=== PATIENT | female | born 1930 | race Hispanic/Latino ===

== ENCOUNTER → 2018-11-13 | Emergency (ER) | payer MEDICARE ==
[~2018-11-13] VITALS: Ht 149.9 cm; Wt 56.7 kg
[~2018-11-13] MED LIST: COLACE100 MG PO; DICYCLOMINE HCL 20 MG/2 ML VIAL IM ONE; FAMOTIDINE 20 MG/2 ML VIAL IV ONE; SODIUM CHLORIDE 0.9% 1000ML 1,000 ML ONE; ULTRACET TABLE1 EACH PO; ULTRAM50 MG PO
--- OUTSIDE RECORDS SUMMARY | 2018-11-14 | XMS REPORT ---
Author Author Sachin Ramos Organization [employer] Address Unknown Phone Unavailable Care Team Providers Care Scenic Artist Name Role Phone Sachin Ramos Unavailable Allergies, Adverse Reactions, Alerts Substance Reaction Event Type N.K.D.A. 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 Problem Mixed hyperlipidemia 272.2 Active Problem 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.9 Active Problem Mixed hyperlipidemia E78.2 Active Problem Pain in left leg M79.605 Active Problem Family history of ischemic heart disease and other diseases of the circulatory system Z82.49 Active Problem Screening for cardiovascular conditions V81.2 Active Problem Pulmonary hypertension, 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 Problem Arthropathy, 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 Active Assessment Pulmonary hypertension, 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 Assessment Mixed hyperlipidemia E78.2 Active Assessment Family history of ischemic heart disease and other diseases of the circulatory system Z82.49 Active Assessment 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.9 Active Assessment Arthropathy, 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 Active Assessment Pain in left leg M79.605 Active Medications Medication Code System Code Instructions Start Date End Date Status Dosage Famotidine [facility] [address]-06 20 MG Orally Twice a day Active 1 tablet Pantoprazole Sodium [facility] [address]-55 40 MG Orally Once a day Active 1 tablet Loratadine [facility] [address]-36 10 MG Orally Once a day Active 1 tablet Alprazolam [facility] [address]-00 0.5 MG Orally once every night Active 1 tablet Atorvastatin Calcium [facility] [address]-55 10 mg Orally Once a day Active 1 tablet Losartan Potassium [facility] [address]-33 50 MG Orally Once a day Active 1 tablet Anucort-HC [facility] [address]-62 25 MG Rectal Twice a day Nov 24, 2015 Active 1 suppository Tramadol-Acetaminophen [facility] [address]-52 37.5-325 MG Orally every 12 hours Active 1 tablet Gabapentin [facility] [address]-20 100 MG Orally Active not defined Amlodipine Besylate [facility] [address]-36 5 MG Orally Once a day Active 1 tablet Vital Signs Date/Time: June 16, 2016 BMI 27.26 Index Weight 135 lbs Height 4ft 11in in Cardiac Monitoring Heart Rate 70 /min Blood Pressure Diastolic 65 mm Hg Blood Pressure Systolic 139 mm Hg Results No Known Results Summary Purpose [employer]ClinicalWorks Submission
--- OUTSIDE RECORDS SUMMARY | 2018-11-14 | XMS REPORT ---
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
--- OUTSIDE RECORDS SUMMARY | 2018-11-14 | XMS REPORT | Continuity of Care Document ---
Author Author [employer] Address Unknown Phone Unavailable Care Team Providers Care Bicycle Inspector Name Role Phone Plan A Drink Unavailable Unavailable Problems Problem Status Onset Date Classification Date Reported Comments Source Unspecified arthropathy, lower leg Active Problem 08/15/2018 Sachin Ramos MD, PA Mixed hyperlipidemia Active Problem 08/15/2018 Sachin Ramos MD, PA Benign hypertensive heart disease without heart failure Active Problem 08/15/2018 Sachin Ramos MD, TANIKA Screening for cardiovascular conditions Active Problem 08/15/2018 Sachin Ramos MD, PA Pain in left leg Active Problem 08/15/2018 Sachin Ramos MD, PA Pulmonary hypertension, secondary Active Problem 08/15/2018 Sachin Ramos MD, PA Pulmonary hypertension, unspecified Active Problem 08/15/2018 Sachin Ramos MD, PA Hypertensive heart disease without heart failure Active Problem 08/15/2018 Sachin Ramos MD, PA Arthropathy, unspecified Active Problem 08/15/2018 Sachin Ramos MD, PA Family history of ischemic heart disease and other diseases of the circulatory system Active Diagnosis 08/15/2018 Sachin Ramos MD, PA Mixed hyperlipidemia Active Problem 08/15/2018 Sachin Ramos MD, PA Peripheral vascular disease, unspecified Active Problem 08/15/2018 Sachin Ramos MD, PA Nonrheumatic aortic (valve) insufficiency Active Problem 08/15/2018 Sachin Ramos MD, TANIKA Medications Medication Details Route Status Patient Instructions Ordering Provider Order Date Source Aspirin 1 tablet Orally Active 81 MG Orally Once a day [facility] 10/25/2017 Sachin Ramos MD, PA Anucort-HC 1 suppository Rectal Active 25 MG Rectal Twice a day [facility] 11/24/2015 Sachin Ramos MD, PA Anucort-HC 1 suppository Rectal Active 25 MG Rectal Twice a day [facility] 11/24/2015 Sachin Ramos MD, PA Amoxicillin 1 tablet Orally Active 500 mg Orally every 12 hrs [facility] 11/06/2014 Sachin Ramos MD, TANIKA Atorvastatin Calcium 1 tablet Orally Active 10 mg Orally Once a day Rachel Ramos MD, PA Amlodipine Besylate 1 tablet Orally Active 5 MG Orally Once a day Rachel Ramos MD, PA Tramadol-Acetaminophen 1 tablet Orally Active 37.5-325 MG Orally every 12 hours Rachel Ramos MD, PA Mobic 1 tablet Orally Active 7.5 MG Orally Once a day Rachel Ramos MD, TANIKA Pantoprazole Sodium 1 tablet Orally Active 40 MG Orally Once a day Rachel Ramos MD, TANIKA Famotidine 1 tablet Orally Active 20 MG Orally Twice a day Rachel Ramos MD, PA Alprazolam 1 tablet Orally Active 0.5 MG Orally once every night Rachel Ramos MD, TANIKA Gabapentin not defined Orally Active 100 MG Orally Rachel Ramos MD, PA Losartan Potassium 1 tablet Orally Active 50 MG Orally Once a day Rachel Ramos MD, PA Loratadine 1 tablet Orally Active 10 MG Orally Once a day Rachel Ramos MD, TANIKA Tramadol-Acetaminophen 1 tablet Orally Active 37.5-325 MG Orally every 12 hours Rachel Ramos MD, PA Atorvastatin Calcium 1 tablet Orally Active 10 mg Orally Once a day Rachel Ramos MD, PA Alprazolam 1 tablet Orally Active 0.5 MG Orally once every night Rachel Ramos MD, PA Telmisartan 1 tablet Orally Active 80 MG Orally Once a day Rachel Ramos MD, PA Famotidine 1 tablet Orally Active 20 MG Orally Twice a day Rachel Ramos MD, PA Amlodipine Besylate 1 tablet Orally Active 5 MG Orally Once a day Rachel Ramos MD, TANIKA Gabapentin not defined Orally Active 300 MG Orally Rachel Ramos MD, PA Pantoprazole Sodium 1 tablet Orally Active 40 MG Orally Once a day Rachel Ramos MD, PA Loratadine 1 tablet Orally Active 10 MG Orally Once a day Rachel Ramos MD, PA Losartan Potassium 1 tablet Orally Active 50 MG Orally Once a day Rachel Ramos MD, TANIKA Gabapentin not defined Orally Active 100 MG Orally Rachel Ramos MD, PA Ondansetron 1 tablet Orally Active 4 mg Orally every 8 hrs Rachel Ramos MD, PA Omeprazole 1 capsule Orally Active 40 MG Orally Once a day Rachel Ramos MD, PA Allergies, Adverse Reactions, Alerts Substance Category Reaction Severity Reaction type Status Date Reported Comments Source N.K.D.A. Adverse Reaction Info Not Available Adverse Reaction Active 08/14/2018 Sachin Ramos MD, PA Immunizations No Data Provided for This Section Results No Data Provided for This Section Pathology Reports No Data Provided for This Section Diagnostic Reports No Data Provided for This Section Consultation Notes No Data Provided for This Section Discharge Summaries No Data Provided for This Section History and Physicals No Data Provided for This Section Vital Signs Vital Sign Value Date Comments Source Weight 123 08/14/2018 Sachin Ramos MD, PA Heart Rate 75 08/14/2018 Sachin Ramos MD, PA Diastolic (mm Hg) 70 08/14/2018 Sachin Ramos MD, PA Systolic (mm Hg) 138 08/14/2018 Sachin Ramos MD, PA Weight 123 02/27/2018 Sachin Ramos MD, PA Heart Rate 60 02/27/2018 Sachin Ramos MD, PA Diastolic (mm Hg) 60 02/27/2018 Sachin Ramos MD, PA Systolic (mm Hg) 132 02/27/2018 Sachin Ramos MD, PA Weight 122 10/24/2017 Sachin Ramos MD, PA Heart Rate 71 10/24/2017 Sachin Ramos MD, PA Diastolic (mm Hg) 70 10/24/2017 Sachin Ramos MD, PA Systolic (mm Hg) 128 10/24/2017 Sachin Ramos MD, PA Weight 124 07/18/2017 Sachin Ramos MD, PA Heart Rate 75 07/18/2017 Sachin Ramso MD, PA Diastolic (mm Hg) 67 07/18/2017 Sachin Ramos MD, PA Systolic (mm Hg) 118 07/18/2017 Sachin Ramos MD, PA Weight 124 12/19/2016 Sachin Ramos MD, PA Height 59 12/19/2016 Sachin Ramos MD, PA Heart Rate 86 12/19/2016 Sachin Ramos MD, PA Diastolic (mm Hg) 68 12/19/2016 Sachin Ramos MD, PA Systolic (mm Hg) 140 12/19/2016 Sachin Ramos MD, PA Weight 135 06/16/2016 Sachin Ramos MD, PA Heart Rate 70 06/16/2016 Sachin Ramos MD, PA Diastolic (mm Hg) 65 06/16/2016 Sachin Ramos MD, PA Systolic (mm Hg) 139 06/16/2016 Sachin Ramos MD, PA Weight 134 11/24/2015 Sachin Ramos MD, PA Heart Rate 77 11/24/2015 Sachin Ramos MD, PA Diastolic (mm Hg) 60 11/24/2015 Sachin Ramos MD, PA Systolic (mm Hg) 138 11/24/2015 Sachin Ramos MD, PA Weight 133 05/26/2015 Sachin Ramos MD, PA Heart Rate 67 05/26/2015 Sachin Ramos MD, PA Diastolic (mm Hg) 60 05/26/2015 Sachin Ramos MD, PA Systolic (mm Hg) 125 05/26/2015 Sachin Ramos MD, PA Weight 139 11/20/2014 Sachin Ramos MD, PA Heart Rate 74 11/20/2014 Sachin Ramos MD, PA Diastolic (mm Hg) 64 11/20/2014 Sachin Ramos MD, PA Systolic (mm Hg) 128 11/20/2014 Sachin Ramos MD, PA Weight 139 11/06/2014 Sachin Ramos MD, PA Heart Rate 91 11/06/2014 Sachin Ramos MD, PA Diastolic (mm Hg) 65 11/06/2014 Sachin Ramos MD, PA Systolic (mm Hg) 139 11/06/2014 Sachin Ramos MD, PA Encounters Location Location Details Encounter Type Encounter Number Reason For Visit Attending Provider ADM Date DC Date Status Source Sachin Ramos MD, PA Unknown [id number] 11/06/2014 11/06/2014 Sachin Ramos MD, PA Sachin Ramos MD, PA Unknown [id number] 11/06/2014 11/06/2014 Sachin Ramos MD, PA Sachin Ramos MD, PA Unknown [id number] 11/06/2014 11/06/2014 Sachin Ramos MD, PA Sachin Ramos MD, PA Unknown [id number] 11/06/2014 11/06/2014 Sachin Ramos MD, PA Sachin Ramos MD, PA Unknown [id number] 11/06/2014 11/06/2014 Sachin Ramos MD, PA Sachin Ramos MD, PA Unknown [id number] 11/06/2014 11/06/2014 Sachin Ramos MD, PA Sachin Ramos MD, PA echo/carotid/arterial dopplers [id number] 11/06/2014 11/06/2014 Sachin Ramos MD, PA Sachin Ramos MD, PA echo/carotid/arterial dopplers [id number] 11/06/2014 11/06/2014 Sachin Ramos MD, PA Sachin Ramos MD, PA echo/carotid/arterial dopplers [id number] 11/06/2014 11/06/2014 Sachin Ramos MD, PA Sachin Ramos MD, PA echo/carotid/arterial dopplers [id number] 11/06/2014 11/06/2014 Sachin Ramos MD, PA Sachin Ramos MD, PA echo/carotid/arterial dopplers [id number] 11/06/2014 11/06/2014 Sachin Ramos MD, PA Sachin Ramos MD, PA echo/carotid/arterial dopplers [id number] 11/06/2014 11/06/2014 Sachin Ramos MD, PA Sachin Ramos MD, PA Follow-Up [id number] 11/20/2014 11/20/2014 Sachin Ramos MD, PA Sachin Ramos MD, PA Follow-Up [id number] 11/20/2014 11/20/2014 Sachin Ramos MD, PA Sachin Ramos MD, PA Follow-Up [id number] 11/20/2014 11/20/2014 Sachin Ramos MD, PA Sachin Ramos MD, PA Follow-Up [id number] 11/20/2014 11/20/2014 Sachin Ramos MD, PA Sachin Ramos MD, PA Follow-Up [id number] 05/26/2015 05/26/2015 Sachin Ramos MD, PA Sachin Ramos MD, PA Follow-Up [id number] 05/26/2015 05/26/2015 Sachin Ramos MD, PA Sachin Ramso MD, PA Follow-Up [id number] 05/26/2015 05/26/2015 Sachin Ramos MD, PA Sachin Ramos MD, PA Follow-Up [id number] 11/24/2015 11/24/2015 Sachin Ramos MD, PA Sachin Ramos MD, PA Follow-Up [id number] 11/24/2015 11/24/2015 Sachin Ramos MD, PA Sachin Ramos MD, PA echo/carotid/arterial dopplers [id number] 12/03/2015 12/03/2015 Sachin Ramos MD, PA Procedures No Data Provided for This Section Assessment and Plan No Data Provided for This Section Plan of Care No Data Provided for This Section Social History Social History Date Source Social History ElementQualifiersDate Reported Tobacco Use: . Are you a: never smoker Nov 25, 2015 Marital Status: . Nov 25, 2015 Do you drink alcohol? . Status: No Nov 25, 2015 11/25/2015 Sachin Ramos MD, PA Family History No Data Provided for This Section Advance Directives No Data Provided for This Section Functional Status No Data Provided for This Section
--- OUTSIDE RECORDS SUMMARY | 2018-11-14 00:01 | XMS REPORT ---
Author Author Sachin Ramos Organization [employer] Address Unknown Phone Unavailable Care Team Providers Care Android Developer Name Role Phone Sachin Ramos Unavailable Allergies, Adverse Reactions, Alerts Substance Reaction Event Type N.K.D.A. Info Not Available Non Drug Allergy Problems Problem Type Condition Code Onset Dates Condition Status Problem Mixed hyperlipidemia 272.2 Active Problem Mixed hyperlipidemia E78.2 Active Problem 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.9 Active Problem Peripheral vascular disease, unspecified I73.9 Active Assessment Family history of ischemic heart disease and other diseases of the circulatory system Z82.49 Active Problem Pulmonary hypertension, unspecified I27.20 Active Problem Nonrheumatic aortic (valve) insufficiency I35.1 Active Problem Family history of ischemic heart disease and other diseases of the circulatory system Z82.49 Active Problem Arthropathy, 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 Active Problem Pain in left leg M79.605 Active Problem Pulmonary hypertension, 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 Assessment Pulmonary hypertension, unspecified I27.20 Active Assessment Nonrheumatic aortic (valve) insufficiency I35.1 Active Assessment Arthropathy, 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 Active Assessment Mixed hyperlipidemia E78.2 Active Problem Screening for cardiovascular conditions V81.2 Active Assessment Peripheral vascular disease, unspecified I73.9 Active Problem Unspecified arthropathy, 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 Active Assessment 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.9 Active Problem 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 Medications Medication Code System Code Instructions Start Date End Date Status Dosage Tramadol-Acetaminophen ND 50833325306 37.5-325 MG Orally every 12 hours Active 1 tablet Alprazolam ND 97752941768 0.5 MG Orally once every night Active 1 tablet Aspirin ND 28055422513 81 MG Orally Once a day Oct 25, 2017 Active 1 tablet Atorvastatin Calcium ND 56409828878 10 mg Orally Once a day Active 1 tablet Famotidine ND 74148489549 20 MG Orally Twice a day Active 1 tablet Gabapentin ND 15583998852 300 MG Orally Active not defined Anucort-HC [facility] 21018630822 25 MG Rectal Twice a day Nov 24, 2015 Active 1 suppository Mobic [facility] 71273703571 7.5 MG Orally Once a day Active 1 tablet Losartan Potassium [facility] 30125602182 50 MG Orally Once a day Active 1 tablet Amlodipine Besylate [facility] 26645987695 5 MG Orally Once a day Active 1 tablet Pantoprazole Sodium [facility] 19641104003 40 MG Orally Once a day Active 1 tablet Loratadine [facility] 56603949084 10 MG Orally Once a day Active 1 tablet Vital Signs Date/Time: Feb 27, 2018 BMI 25.70 Index Weight 123 lbs Height 4ft 10in in Cardiac Monitoring Heart Rate 60 /min Blood Pressure Diastolic 60 mm Hg Blood Pressure Systolic 132 mm Hg Results No Known Results Summary Purpose eClinicalWorks Submission
--- OUTSIDE RECORDS SUMMARY | 2018-11-14 00:01 | XMS REPORT ---
Author Author Sachin Ramos Organization [employer] Address Unknown Phone Unavailable Care Team Providers Care Laundry Manager Name Role Phone Sachin Ramos Unavailable Allergies, Adverse Reactions, Alerts Substance Reaction Event Type N.K.D.A. Info Not Available Non Drug Allergy Encounters Encounter Location Date Follow-Up Sachin Ramos MD, PA May 26, 2015 echo/carotid/arterial dopplers Sachin Ramos MD, PA Nov 06, 2014 Unknown Sachin Ramos MD, PA Nov 06, 2014 Follow-Up Sachin Ramos MD, PA Nov 20, 2014 Problems Problem Type Condition ICD-9 Code Onset Dates Condition Status Assessment 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.9 Active Problem Mixed hyperlipidemia 272.2 Active Problem Unspecified [...] of the circulatory system Z82.49 Active Assessment Family history of ischemic heart disease and other diseases of the circulatory system Z82.49 Active Assessment Arthropathy, 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 Active Assessment Pulmonary hypertension, 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 Assessment Mixed hyperlipidemia E78.2 Active Medications Medication Code System Code Instructions Start Date End Date Status Dosage Atorvastatin Calcium [facility] [address]-56 10 mg Orally Once a day Active 1 tablet Alprazolam [facility] [address]-85 0.5 MG Orally once every night Active 1 tablet Amlodipine Besylate [facility] [address]-71 5 MG Orally Once a day Active 1 tablet Telmisartan [facility] [address]-38 80 MG Orally Once a day Active 1 tablet Tramadol-Acetaminophen [facility] [address]-22 37.5-325 MG Orally every 12 hours Active 1 tablet Famotidine [facility] [address]-73 20 MG Orally Twice a day Active 1 tablet Social History Social History Element Qualifiers Date Reported Tobacco Use: . Are you a: never smoker May 26, 2015 Marital Status: . May 26, 2015 Do you drink alcohol? . Status: No May 26, 2015 Vital Signs Date/Time: May 26, 2015 Weight 133 lbs Cardiac Monitoring Heart Rate 67 /min Blood Pressure Diastolic 60 mm Hg Blood Pressure Systolic 125 mm Hg Summary Purpose e[employer]Works Submission
--- OUTSIDE RECORDS SUMMARY | 2018-11-14 00:01 | XMS REPORT ---
Author Author Sachin Ramos Organization [employer] Address Unknown Phone Unavailable Care Team Providers Care Asphalt Paving Foreman Name Role Phone Sachin Ramos Unavailable Allergies, Adverse Reactions, Alerts Substance Reaction Event Type N.K.D.A. Info Not Available Non Drug Allergy Encounters Encounter Location Date Follow-Up Sachin Ramos MD, PA May 26, 2015 Follow-Up Sachin Ramos MD, [place] Nov 24, 2015 echo/carotid/arterial dopplers Sachin Ramos MD, PA Nov 06, 2014 Unknown Sachin Ramos MD, TANIKA Nov 06, 2014 Follow-Up Sachin Ramos MD, [...] Instructions Start Date End Date Status Dosage Ondansetron [facility] [address]-67 4 mg Orally every 8 hrs Active 1 tablet Telmisartan [facility] [address]-02 80 MG Orally Once a day Active 1 tablet Amlodipine Besylate [facility] [address]-48 5 MG Orally Once a day Active 1 tablet Atorvastatin Calcium [facility] [address]-91 10 mg Orally Once a day Active 1 tablet Alprazolam [facility] [address]-37 0.5 MG Orally once every night Active 1 tablet Tramadol-Acetaminophen [facility] [address]-83 37.5-325 MG Orally every 12 hours Active 1 tablet Anucort-HC [facility] [address]-87 25 MG Rectal Twice a day Nov 24, 2015 Active 1 suppository Losartan Potassium [facility] [address]-02 50 MG Orally Once a day Active 1 tablet Omeprazole [facility] [address]-87 40 MG Orally Once a day Active 1 capsule Famotidine [facility] [address]-09 20 MG Orally Twice a day Active 1 tablet Loratadine [facility] [address]-62 10 MG Orally Once a day Active 1 tablet Social History Social History Element Qualifiers Date Reported Tobacco Use: . Are you a: never smoker Nov 25, 2015 Marital Status: . Nov 25, 2015 Do you drink alcohol? . Status: No Nov 25, 2015 Vital Signs Date/Time: Nov 24, 2015 Weight 134 lbs Cardiac Monitoring Heart Rate 77 /min Blood Pressure Diastolic 60 mm Hg Blood Pressure Systolic 138 mm Hg Summary Purpose e[employer]Works Submission
--- OUTSIDE RECORDS SUMMARY | 2018-11-14 00:01 | XMS REPORT ---
Author Author Sachin Ramos Organization [employer] Address Unknown Phone Unavailable Care Team Providers Care Straight Ruling Machine Operator Name Role Phone Sacihn Ramos Unavailable Allergies, Adverse Reactions, Alerts Substance Reaction Event Type N.K.D.A. 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 Problem Family history of ischemic heart disease and other diseases of the circulatory system Z82.49 Active Problem Pain in left leg M79.605 Active Problem Arthropathy, 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 Active Problem Mixed hyperlipidemia 272.2 Active Problem Mixed hyperlipidemia E78.2 Active Problem 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.9 Active Assessment Arthropathy, 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 Active Assessment Pulmonary hypertension, 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 Assessment Mixed hyperlipidemia E78.2 Active Assessment Family history of ischemic heart disease and other diseases of the circulatory system Z82.49 Active Assessment 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.9 Active Medications Medication Code System Code Instructions Start Date End Date Status Dosage Losartan Potassium [facility] 32933059065 50 MG Orally Once a day Active 1 tablet Gabapentin [facility] 40350801687 100 MG Orally Active not defined Loratadine [facility] 82514078177 10 MG Orally Once a day Active 1 tablet Famotidine [facility] 09863898114 20 MG Orally Twice a day Active 1 tablet Mobic [facility] 39445257321 7.5 MG Orally Once a day Active 1 tablet Tramadol-Acetaminophen [facility] 52722475097 37.5-325 MG Orally every 12 hours Active 1 tablet Atorvastatin Calcium [facility] 75733159311 10 mg Orally Once a day Active 1 tablet Amlodipine Besylate [facility] 57983917443 5 MG Orally Once a day Active 1 tablet Pantoprazole Sodium [facility] 60487393311 40 MG Orally Once a day Active 1 tablet Alprazolam [facility] 86606200204 0.5 MG Orally once every night Active 1 tablet Anucort-HC [facility] 81736894046 25 MG Rectal Twice a day Nov 24, 2015 Active 1 suppository Vital Signs Date/Time: Dec 19, 2016 BMI 25.04 Index Weight 124 lbs Height 59 in Cardiac Monitoring Heart Rate 86 /min Blood Pressure Diastolic 68 mm Hg Blood Pressure Systolic 140 mm Hg Results No Known Results Summary Purpose eClinicalWorks Submission
--- OUTSIDE RECORDS SUMMARY | 2018-11-14 00:01 | XMS REPORT ---
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 Problem Peripheral vascular disease, unspecified I73.9 Active Problem Pulmonary hypertension, unspecified I27.20 Active Problem Nonrheumatic aortic (valve) insufficiency I35.1 Active Problem Family history of ischemic heart disease and other diseases of the circulatory system Z82.49 Active Problem Arthropathy, 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 Active Problem Pain in left leg M79.605 Active Problem Pulmonary hypertension, 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 Medications Medication Code System Code Instructions Start Date End Date Status Dosage Loratadine [facility] 91646070639 10 MG Orally Once a day Active 1 tablet Atorvastatin Calcium ND 33839648476 10 mg Orally Once a day Active 1 tablet Tramadol-Acetaminophen [facility] 82010162458 37.5-325 MG Orally every 12 hours Active 1 tablet Mobic ND 24316483840 7.5 MG Orally Once a day Active 1 tablet Aspirin ND 98823329380 81 MG Orally Once a day Oct 25, 2017 Active 1 tablet Amlodipine Besylate ND 91469088697 5 MG Orally Once a day Active 1 tablet Pantoprazole Sodium ND 29007435928 40 MG Orally Once a day Active 1 tablet Anucort-HC ND 67517299395 25 MG Rectal Twice a day Nov 24, 2015 Active 1 suppository Alprazolam ND 58942572473 0.5 MG Orally once every night Active 1 tablet Gabapentin ND 01502424541 300 MG Orally Active not defined Losartan Potassium ND 27800197913 50 MG Orally Once a day Active 1 tablet Famotidine [facility] 97572733923 20 MG Orally Twice a day Active 1 tablet Results No Known Results Summary Purpose eClinicalWorks Submission
--- OUTSIDE RECORDS SUMMARY | 2018-11-14 00:01 | XMS REPORT | Summary of Care ---
Author Author Nadege Booker M.A. Unknown Address Unknown Phone Unavailable Care Team Providers Care Blacking Machine Operator Name Role Phone DANIEL HE M.D. 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 DO NOT APPLY MORE THAN 16 GM DAILY TO ANY ONE AFFECTED JOINT. Quantity: 10 DANIEL HE M.D. * Start : 24-Nov-2016 Active 100 GM Tube Meloxicam 7.5 MG Oral Tablet TAKE 1 TABLET BY MOUTH EVERY DAY NEEDED FOR PAIN * Quantity: 30 Refills: 3 DANIEL HE M.D. * Start : 27-Mar-2017 Active Allergies and Adverse Reactions Name Dates Details Cymbalta (Allergy) Status: Active Procedures Procedure Dates Details Procedures not documented Immunization Name Dates Details Immunizations not documented Social History Name Dates Details Unknown if ever smoked Vital Signs Date Test Result Details [id number] Height 60 in Status: Weight 122 lb Status: Body Mass Index Calculated 23.83 kg/m2 Status: Body Surface Area Calculated 1.51 m2 Status: Results Date Description Value Details Results not documented Plan of Care Name Dates Details Planned Observations Planned Goals not documented Planned Encounters Appointment; DANIEL HE M.D. On: 25-Jan-2018 13:15 Instructions Name Dates Details Instructions not documented Encounters Appointment; DANIEL HE M.D. Encounter Diagnosis: Problem not documented On: 24-Nov-2016 10:45 Appointment; DANIEL HE M.D. Encounter Diagnosis: Problem not documented On: 30-Aug-2017 15:45 Appointment; DANIEL HE M.D. Encounter Diagnosis: Problem not documented On: 14-Sep-2017 10:15 Appointment; DANIEL HE M.D. Encounter Diagnosis: Problem not documented On: 04-Jan-2018 13:15
--- OUTSIDE RECORDS SUMMARY | 2018-11-14 00:01 | XMS REPORT ---
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 Problem Pulmonary hypertension, unspecified I27.20 Active Problem 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.9 Active Problem Arthropathy, 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 Active Problem Family history of ischemic heart disease and other diseases of the circulatory system Z82.49 Active Problem Mixed hyperlipidemia E78.2 Active Medications Medication Code System Code Instructions Start Date End Date Status Dosage Atorvastatin Calcium ND 02952278725 10 mg Orally Once a day Active 1 tablet Amlodipine Besylate ND 45129572092 5 MG Orally Once a day Active 1 tablet Tramadol-Acetaminophen [facility] 69356839225 37.5-325 MG Orally every 12 hours Active 1 tablet Mobic ND 48574897705 7.5 MG Orally Once a day Active 1 tablet Pantoprazole Sodium ND 96386312212 40 MG Orally Once a day Active 1 tablet Famotidine ND 72038480511 20 MG Orally Twice a day Active 1 tablet Anucort-HC ND 54320115899 25 MG Rectal Twice a day Nov 24, 2015 Active 1 suppository Alprazolam ND 56293278267 0.5 MG Orally once every night Active 1 tablet Gabapentin ND 84512824945 100 MG Orally Active not defined Losartan Potassium ND 57831949731 50 MG Orally Once a day Active 1 tablet Loratadine [facility] 81939131994 10 MG Orally Once a day Active 1 tablet Results No Known Results Summary Purpose eClinicalWorks Submission
--- OUTSIDE RECORDS SUMMARY | 2018-11-14 00:01 | XMS REPORT ---
Author Author Sachin Ramos Organization [employer] Address Unknown Phone Unavailable Care Team Providers Care Horse Breeder Name Role Phone Sachin Ramos CP Unavailable Encounters Encounter Location Date [place]Up [place] May 26, 2015 [place]Up [place] Nov 24, 2015 echo/carotid/arterial dopplers [place] Dec 03, 2015 echo/carotid/arterial dopplers [place] Nov 06, 2014 [place] Sach[place] Nov 06, 2014 [place]Up Sachin [place] Nov 20, 2014 Problems Problem Type Condition ICD-9 Code Onset Dates Condition Status Problem Mixed [...] diseases of the circulatory system Z82.49 Active Social History Social History Element Qualifiers Date Reported Tobacco Use: . Are you a: never smoker Nov 25, 2015 Marital Status: . Nov 25, 2015 Do you drink alcohol? . Status: No Nov 25, 2015 Summary Purpose eClinicalWorks Submission
--- OUTSIDE RECORDS SUMMARY | 2018-11-14 00:01 | XMS REPORT ---
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 Are you a: never smoker Nov 06, 2014 Marital Status: . Nov 06, 2014 Do you drink alcohol? . Status: No Nov 06, 2014 Summary Purpose eClinicalWorks Submission
--- OUTSIDE RECORDS SUMMARY | 2018-11-14 00:01 | XMS REPORT ---
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 Assessment Mixed hyperlipidemia E78.2 Active Assessment Pulmonary hypertension, unspecified I27.20 Active Assessment Family history of ischemic heart disease and other diseases of the circulatory system Z82.49 Active Assessment Arthropathy, 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 Active Assessment 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.9 Active Problem Screening for cardiovascular conditions V81.2 Active Assessment Nonrheumatic aortic (valve) insufficiency I35.1 Active Problem Unspecified arthropathy, 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 Active Assessment Peripheral vascular disease, unspecified I73.9 Active Problem 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 31040625075 7.5 MG Orally Once a day Active 1 tablet Amlodipine Besylate ND 29261344788 5 MG Orally Once a day Active 1 tablet Famotidine ND 32531438750 20 MG Orally Twice a day Active 1 tablet Tramadol-Acetaminophen [facility] 10636732966 37.5-325 MG Orally every 12 hours Active 1 tablet Gabapentin [facility] 52729724112 100 MG Orally Active not defined Aspirin [facility] 55711277081 81 MG Orally Once a day Oct 25, 2017 Active 1 tablet Pantoprazole Sodium [facility] 77144165639 40 MG Orally Once a day Active 1 tablet Loratadine [facility] 71865716494 10 MG Orally Once a day Active 1 tablet Atorvastatin Calcium [facility] 61897863570 10 mg Orally Once a day Active 1 tablet Alprazolam [facility] 42540141244 0.5 MG Orally once every night Active 1 tablet Losartan Potassium [facility] 26275326540 50 MG Orally Once a day Active 1 tablet Vital Signs Date/Time: Oct 24, 2017 BMI 25.50 Index Weight 122 lbs Height 4ft 10in in Cardiac Monitoring Heart Rate 71 /min Blood Pressure Diastolic 70 mm Hg Blood Pressure Systolic 128 mm Hg Results No Known Results Summary Purpose eClinicalWorks Submission
--- OUTSIDE RECORDS SUMMARY | 2018-11-14 00:01 | XMS REPORT ---
Author Author Sachin Ramos Organization [employer] Address Unknown Phone Unavailable Care Team Providers Care Remote Sensing Research Scientist Name Role Phone Sachin Ramos Unavailable Allergies, Adverse Reactions, Alerts Substance Reaction Event Type N.K.D.A. 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 Assessment Mixed hyperlipidemia 272.2 Active Problem Unspecified arthropathy, 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 Active Assessment Screening for cardiovascular conditions V81.2 Active Medications Medication Code System Code Instructions Start Date End Date Status Dosage Amlodipine Besylate [facility] [address]-49 5 MG Orally Once a day Active 1 tablet Famotidine [facility] [address]-07 20 MG Orally Twice a day Active 1 tablet Telmisartan [facility] [address]-18 80 MG Orally Once a day Active 1 tablet Tramadol-Acetaminophen [facility] [address]-77 37.5-325 MG Orally every 12 hours Active 1 tablet Alprazolam [facility] [address]-18 0.5 MG Orally once every night Active 1 tablet Atorvastatin Calcium [facility] [address]-33 10 MG Orally Once a day Active 1 tablet Amoxicillin [facility] [address]-50 500 mg Orally every 12 hrs Nov 06, 2014 Nov 13, 2014 Active 1 tablet Social History Social History Element Qualifiers Date Reported Tobacco Use: . Are you a: never smoker Nov 06, 2014 Marital Status: . Nov 06, 2014 Do you drink alcohol? . Status: No Nov 06, 2014 Vital Signs Date/Time: Nov 06, 2014 Weight 139 lbs Cardiac Monitoring Heart Rate 91 /min Blood Pressure Diastolic 65 mm Hg Blood Pressure Systolic 139 mm Hg Summary Purpose eClinicalWorks Submission
--- OUTSIDE RECORDS SUMMARY | 2018-11-14 00:01 | XMS REPORT ---
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 Medications Medication Code System Code Instructions Start Date End Date Status Dosage Amlodipine Besylate ND 22477299327 5 MG Orally Once a day Active 1 tablet Atorvastatin Calcium ND 16285591915 10 mg Orally Once a day Active 1 tablet Gabapentin ND 26489050106 300 MG Orally Active not defined Mobic ND 10214295671 7.5 MG Orally Once a day Active 1 tablet Aspirin ND 67293872880 81 MG Orally Once a day Oct 25, 2017 Active 1 tablet Famotidine ND 94688432980 20 MG Orally Twice a day Active 1 tablet Pantoprazole Sodium [facility] 02723709502 40 MG Orally Once a day Active 1 tablet Anucort-HC [facility] 64460581512 25 MG Rectal Twice a day Nov 24, 2015 Active 1 suppository Tramadol-Acetaminophen [facility] 86499067774 37.5-325 MG Orally every 12 hours Active 1 tablet Alprazolam [facility] 10705903305 0.5 MG Orally once every night Active 1 tablet Losartan Potassium [facility] 01146949115 50 MG Orally Once a day Active 1 tablet Loratadine [facility] 01790802982 10 MG Orally Once a day Active 1 tablet Vital Signs Date/Time: August 14, 2018 BMI 25.70 Index Weight 123 lbs Height 4ft 10in in Cardiac Monitoring Heart Rate 75 /min Blood Pressure Diastolic 70 mm Hg Blood Pressure Systolic 138 mm Hg Results No Known Results Summary Purpose eClinicalWorks Submission
--- OUTSIDE RECORDS SUMMARY | 2018-11-14 00:01 | XMS REPORT ---
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 Medications Medication Code System Code Instructions Start Date End Date Status Dosage Tramadol-Acetaminophen [facility] [address]-13 37.5-325 MG Orally every 12 hours Active 1 tablet Atorvastatin Calcium [facility] [address]-00 10 MG Orally Once a day Active 1 tablet Alprazolam [facility] [address]-60 0.5 MG Orally once every night Active 1 tablet Telmisartan [facility] [address]-23 80 MG Orally Once a day Active 1 tablet Famotidine [facility] [address]-14 20 MG Orally Twice a day Active 1 tablet Amlodipine Besylate [facility] [address]-12 5 MG Orally Once a day Active 1 tablet Social History Social History Element Qualifiers Date Reported Tobacco Use: . Are you a: never smoker Nov 21, 2014 Marital Status: . Nov 21, 2014 Do you drink alcohol? . Status: No Nov 21, 2014 Vital Signs Date/Time: Nov 20, 2014 Weight 139 lbs Cardiac Monitoring Heart Rate 74 /min Blood Pressure Diastolic 64 mm Hg Blood Pressure Systolic 128 mm Hg Summary Purpose eClinicalWorks Submission
--- OUTSIDE RECORDS SUMMARY | 2018-11-14 00:01 | XMS REPORT ---
Author Author Sachin Ramos Organization eClinicalWorks Address Unknown Phone Unavailable Care Team Providers Care Waste Paper Hammermill Operator Name Role Phone Sachin Ramos Unavailable Allergies, Adverse Reactions, Alerts Substance Reaction Event Type N.K.D.A. 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 Problem Pulmonary hypertension, unspecified I27.20 Active Problem 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.9 Active Problem Arthropathy, 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 Active Problem Family history of ischemic heart disease and other diseases of the circulatory system Z82.49 Active Problem Mixed hyperlipidemia E78.2 Active Assessment Pulmonary hypertension, unspecified I27.20 Active Assessment Mixed hyperlipidemia E78.2 Active Assessment Family history of ischemic heart disease and other diseases of the circulatory system Z82.49 Active Assessment 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.9 Active Assessment Arthropathy, 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 Active Problem Screening for cardiovascular conditions V81.2 Active Medications Medication Code System Code Instructions Start Date End Date Status Dosage Loratadine [facility] 46051601609 10 MG Orally Once a day Active 1 tablet Famotidine [facility] 74928224129 20 MG Orally Twice a day Active 1 tablet Alprazolam ND 92878283250 0.5 MG Orally once every night Active 1 tablet Gabapentin ND 84271568606 100 MG Orally Active not defined Pantoprazole Sodium ND 87827606961 40 MG Orally Once a day Active 1 tablet Amlodipine Besylate ND 45501878565 5 MG Orally Once a day Active 1 tablet Anucort-HC [facility] 29453148100 25 MG Rectal Twice a day Nov 24, 2015 Active 1 suppository Tramadol-Acetaminophen [facility] 77140762110 37.5-325 MG Orally every 12 hours Active 1 tablet Mobic [facility] 50816251303 7.5 MG Orally Once a day Active 1 tablet Losartan Potassium [facility] 20484361054 50 MG Orally Once a day Active 1 tablet Atorvastatin Calcium [facility] 82874498514 10 mg Orally Once a day Active 1 tablet Vital Signs Date/Time: July 18, 2017 BMI 25.91 Index Weight 124 lbs Height 4ft 10in in Cardiac Monitoring Heart Rate 75 /min Blood Pressure Diastolic 67 mm Hg Blood Pressure Systolic 118 mm Hg Results No Known Results Summary Purpose eClinicalWorks Submission
--- OUTSIDE RECORDS SUMMARY | 2018-11-14 00:01 | XMS REPORT ---
Author Author [facility] Address Unknown Phone Unavailable Care Team Providers Care Rehab Liaison Name Role Phone Unavailable Unavailable Payers Payer Name Policy Type Policy Number Effective Date Expiration Date Problems This patient has no known problems. Allergies, Adverse Reactions, Alerts Allergy Name Allergy Type Status Severity Reaction(s) Onset Date Inactive Date Treating Clinician Comments CINBALTA DA Active SV 2017-11-17 00:00:00 promethazine DA Active U 2017-09-12 00:00:00 Medications This patient has no known medications. Results Test Description Test Time Test Comments Text Results Atomic Results Result Comments COLON BIOPSY 2017-11-22 16:30:00 RUN DATE: 11/22/17 [facility] PAGE 1 RUN TIME: 1630 Specimen Inquiry RUN USER: INTERFACE [id number] LOC: MANUEL #: [id number] AGE/SX: 87/F ROOM: RE11/21/17REG DR: Uli Lujan MD : [birth year] BED: DIS: STATUS: PRE [facility] TLOC: SPEC #: [id number] RECD: 11/21/17 STATUS: GAUTAM MCDOWELL #: [id number] LEATHA: 11/21/17- DR: Uli Lujan MD ENTERED: 11/21/17 SP TYPE: COLONBX OTHR DR: Tristian Flores MD ORDERED: GROSS COPIES TO: Uli Lujan MD [id number] [facility] [address] [place] [address] Tristian Flores MD [id number] [place] [address] PROCE DURES: GROSS (11/22/17-1322) TISSUES: 1. DESCENDING COLON - POLYP BX HS 2. CECUM, NOS - POLYP HS 3. ASCENDING COLON - POLYP HS CLINICAL HISTORY COLLECTION DATE: 11/21/17 LOWER ABDOMINAL PAIN, CONSTIPATION POST-OP DIAGNOSIS: COLON POLYPS, INTERNAL HEMORRHOIDS COMMENT Specimen container #2, "cecum polyp" consists of two fragments of tissue within the specimen container. Clinical correlation is recommended. FINAL DIAGNOSIS Descending colon polyp X 2, hot snare: TUBULAR ADENOMA X 2 NEGATIVE FOR MALIGNANCY Cecal polyp X 3, hot snare/biopsy: TUBULAR ADENOMA X 2, see comment NEGATIVE FOR MALIGNANCY Ascending colon polyp X 2, hot snare: FRAGMENTS OF TUBULAR ADENOMA CONTINUED ON NEXT PAGE RUN DATE: 11/22/17 [facility] PAGE 2 RUN TIME: 1630 Specimen Inquiry RUN USER: INTERFACE SPEC #: [id number] PATIENT: ASHLEY PEREZ #[id number] (Continued) FINAL DIAGNOSIS (Continued) NEGATIVE FOR MALIGNANCY SKINNY/ D [id number] MACROSCOPIC The first specimen is received in formalin, labeled with the patient's name, identified as "descending colon polyp", and consists of pink- lane biopsy tissue measuring 0.35 cm in aggregate, submitted as (1). The second specimen is received in formalin, labeled with the patient's name, identified as "cecum polyp", and consists of two pink-lane biopsy tissue measuring 0.15 and 0.25 cm in diameter, submitted as (2). The third specimen is received in formalin, labeled with the patient's name, identified as "ascending colon polyp", and consists of multiple light pink- lane biopsy tissue measuring 0.25 cm in aggregate, submitted as (3). GROSS PERFORMED AT [facility] [address] [place] [id number] [phone] MICROSCOPIC MICROSCOPIC PERFORMED AT [facility] All of the stains, including any controls performed, stain appropriately. [facility] [address] [place] [address], [place] [address] [phone])[phone] PERFORMING SITE Diagnosis performed at: [facility] [address] [place] [address] CONTINUED ON NEXT PAGE RUN DATE: 11/22/17 [facility] PAGE 3 RUN TIME: 1630 Specimen Inquiry RUN USER: INTERFACE SPEC #: [id number] PATIENT: ASHLEY PEREZ CRISTINA #[id number] (Continued) Signed SIGNATURE ON FILE Alexa Herrera 11/22/17 16 30 END OF REPORT
--- NOTE | 2018-11-14 01:09 | Diagnostic Imaging Report ---
Exam: Right shoulder 3 views History: Fall, right-sided pain Comparison: None. Findings: No acute, displaced fracture or dislocation. Humeral head projects appropriately over the glenoid on the transscapular radiograph. The acromioclavicular and glenohumeral joints are intact with degenerative osteophytosis of both. No focal soft tissue abnormalities. Impression: No acute osseous abnormality. Signed by: Dr. Ronn Camarena M.D. on 11/14/2018 1:05 AM
--- NOTE | 2018-11-14 01:12 | Diagnostic Imaging Report ---
EXAMINATION: PA and lateral views of the chest. COMPARISON: None CLINICAL HISTORY: Fall, right-sided pain DISCUSSION: The lungs are well-inflated without focal airspace consolidation, pleural effusion, or pneumothorax. Mild prominence of the pulmonary interstitium is likely reflective of age-related fibrotic changes. Tortuous thoracic aorta with atherosclerotic calcification. Posterior mediastinal convexity with a probable air-fluid level likely a hiatal hernia. Questionable age indeterminant anterior compression deformities of 2 adjacent lower thoracic/upper lumbar vertebral bodies on the lateral radiograph may be a consequence of dextroscoliotic curvature as seen on the frontal radiograph. IMPRESSION: No acute cardiopulmonary abnormality. Questionable anterior compression deformities of adjacent lower thoracic and upper lumbar vertebral bodies, probably T12 and L1, though dextroscoliotic curvature at this level limits evaluation. Correlate for point tenderness. Signed by: Dr. Ronn Camarena M.D. on 11/14/2018 1:09 AM
--- NOTE | 2018-11-14 01:21 | Diagnostic Imaging Report ---
EXAMINATION: Head CT without contrast. HISTORY:Fall. COMPARISON:None. TECHNIQUE: Multidetector axial images were obtained from the foramen magnum to the vertex without contrast. The images were reconstructed using brain and bone algorithms. Thin section brain images were reformatted into coronal and sagittal planes. Dose modulation, iterative reconstruction, and/or weight based adjustment of the mA/kV was utilized to reduce the radiation dose to as low as reasonably achievable. Intravenous contrast: None IMAGE QUALITY: Acceptable. FINDINGS: Skull/scalp: No lytic or blastic. lesions. No surgical changes. Parenchyma: Nonspecific bilateral frontoparietal patchy white matter hypodensity are likely related to small vessel ischemic changes. No acute hemorrhage, mass or acute major vascular territorial infarct. Arteries: No density suggestive of thrombosis. Atherosclerotic calcification in bilateral carotid siphon. Dural sinuses: No abnormal density suggestive of thrombosis. Ventricles: Compensated dilatation due to volume loss. No acute hydrocephalus. Extra-axial spaces: No abnormal density. Brain volume: Generalized age-related cerebral volume loss. Craniocervical junction: No mass, Chiari malformation, or basilar invagination. Sella: No mass. Paranasal/mastoid sinuses: Imaged portions unremarkable. IMPRESSION: No acute intracranial abnormality. Mild supratentorial white matter microvascular ischemic changes. Generalized age-related cerebral volume loss. Signed by: Dr. Erin Sun M.D. on 11/14/2018 1:19 AM
--- NOTE | 2018-11-14 01:27 | Diagnostic Imaging Report ---
Exam: Lumbar spine 3 views History: Fall, back pain Comparison: None. Findings: There are 5 nonrib-bearing lumbar vertebral bodies. No acute displaced fracture or subluxation the evaluation is limited due to dextroscoliotic curvature of the lumbar spine. Multilevel degenerative disc changes throughout with associated endplate sclerosis and marginal osteophytes. Sacroiliac joints are intact. Impression: No acute displaced fracture or subluxation though evaluation is limited due to dextroscoliotic curvature. Soft tissue, ligamentous, and spinal cord abnormalities cannot be excluded on the basis of plain radiography. Signed by: Dr. Ronn Camarena M.D. on 11/14/2018 1:24 AM
--- NOTE | 2018-11-14 02:06 | Diagnostic Imaging Report ---
History: Fall. Comparison studies: None Technique: Axial images were obtained through the cervical region.. Coronal and sagittal images reconstructed from the axial data. Dose modulation, iterative reconstruction, and/or weight based adjustment of the mA/kV was utilized to reduce the radiation dose to as low as reasonably achievable. Intravenous contrast: None Findings: Fractures: None. Soft tissue injuries: None. Atlantoaxial articulation: Intact. Alignment: Loss of normal cervical lordosis is either positional or due to muscle spasm. No scoliosis. Cervicomedullary junction: No abnormalities. The foramen magnum is patent. Soft tissues: Atherosclerotic calcification in bilateral carotid bulb. Vertebrae: No fractures, infection or neoplasm. Degenerative changes: C3-C4: Posterior disc osteophyte complex results in mild canal stenosis. C4-C5: Mild degenerative disc disease. C5-C6: Mild degenerative disc disease. Mild left foraminal stenosis due to facet and uncovertebral arthrosis. C6-C7: Mild degenerative disc disease. Mild left foraminal stenosis due to uncovertebral arthrosis.. IMPRESSION: 1. No acute cervical spine fracture or dislocation. Loss of normal cervical lordosis is either positional or due to muscle spasm. 2. Ligament, spinal cord and or vascular abnormalities cannot be excluded on the basis of this examination. 3. Cervical spondylosis as detailed above. Signed by: Dr. Erin Sun M.D. on 11/14/2018 2:02 AM
--- NOTE | 2018-11-14 03:41 | Diagnostic Imaging Report ---
Exam: Right hip 2 views History: Fall, hip pain Comparison: None. Findings: No acute, displaced fracture or dislocation. Moderate joint space narrowing with marginal osteophytosis. Soft tissues are unremarkable. Impression: No acute osseous abnormality. Signed by: Dr. Ronn Camarena M.D. on 11/14/2018 1:41 AM
== END | disposition home or self-care (01) ==
LOC: FSED 23:56
DX: S00.83XA Contusion of other part of head, initial encounter (principal); S40.011A Contusion of right shoulder, initial encounter; S70.01XA Contusion of right hip, initial encounter; W18.2XXA Fall in (into) shower or empty bathtub, initial encounter; Y93.E1 Activity, personal bathing and showering; Y92.002 Bathroom of unspecified non-institutional (private) residence as the place of occurrence of the external cause; I10 Essential (primary) hypertension; E78.5 Hyperlipidemia, unspecified